=== PATIENT | male | born 1940 | race Caucasian/White ===

== ENCOUNTER 2020-02-10 02:23 | Emergency (ER) | payer OTHER, MEDICARE ==
[~2020-02-10] VITALS: Ht 182.9 cm; Wt 95.3 kg
[2020-02-10 02:23] VITALS: BP_SYST 162
[~2020-02-10 02:23] MED LIST: ATEN100T PO; LEVO137T20 PO; LOSA100T23 PO; PRAV40TA PO; TRIA1CAP6 PO
[2020-02-10] MEDS ORDERED: TRANEXAMIC ACID 1,000 MG/10 ML VIAL IV ONE ×2 (02:45→03:30)
[2020-02-10] MEDS ORDERED: TRANEXAMIC ACID 1,000 MG/10 ML VIAL ONE (02:46)
[2020-02-10] MEDS ORDERED: OXYMETAZOLINE HCL 0.05% NASAL SPRAY NS ONE ×3 (03:13→05:15)
[2020-02-10 03:17] LABS: BASOPHILS % (AUTO) 0.8 % (0.0-2.0); EOSINOPHILS # (AUTO) 0.1 K/uL (0.0-0.4); EOSINOPHILS % (AUTO) 2.2 % (0.0-4.0); HEMATOCRIT 45.2 % (36-54); HEMOGLOBIN 15.3 g/dL (14.0-18.0); LYMPHOCYTES # (AUTO) 1.1 K/uL (1.0-5.5); LYMPHOCYTES % (AUTO) 20.4 % (20.5-51.5); MEAN CORPUSCULAR HEMOGLOBIN 31 pg (27-31); MEAN CORPUSCULAR HGB CONC 34 % (32-36); MEAN CORPUSCULAR VOLUME 92 fL (79.0-98.0); MONOCYTES # (AUTO) 0.6 K/uL (0.0-1.0); MONOCYTES % (AUTO) 10.4 % (1.7-9.3); NEUTROPHILS # (AUTO) 3.5 K/uL (1.8-7.7); NEUTROPHILS % (AUTO) 66.2 % (40.0-70.0); PLATELET COUNT (AUTO) 152 K/uL (130-430); RED BLOOD CELL COUNT(AUTO) 4.89 MIL/uL (4.2-6.2); RED CELL DISTRIBUTION WIDTH 14.8 % (9.0-15.0); WHITE BLOOD COUNT (AUTO) 5.3 K/uL (4.8-10.8)
[2020-02-10 03:29] LABS: ANION GAP 6 (5-15); CALCIUM 8.5 mg/dL (8.4-11.0); CHLORIDE 107 mmol/L (98-107); CREATININE 1.44 mg/dL (0.55-1.30); GLUCOSE 157 mg/dL (70-99); POTASSIUM 4.7 mmol/L (3.5-5.1); SODIUM SERUM 136 mmol/L (136-145); UREA NITROGEN, BLOOD 23 mg/dL (8-21)
[2020-02-10 03:31] LABS: INR 1.1 (0.80-1.20); PROTHROMBIN TIME 10.7 SECS (9.5-12.5)
[2020-02-10 03:33] LABS: ALANINE AMINOTRANSFERASE 21 U/L (12-78); ALBUMIN 3.5 g/dL (3.4-4.8); ASPARTATE AMINOTRANSFERASE 16 U/L (10-37); TOTAL BILIRUBIN 0.7 mg/dL (0.0-1.0)
[2020-02-10] MEDS ORDERED: SILVER NITRATE APPLICATOR 1 STICK STICK..EA. TP ONE ×2 (05:15→05:30)
[2020-02-10 06:31] VITALS: BP_SYST 162
== END 2020-02-10 06:30 | disposition home or self-care (01) ==
LOC: SED 02:23
DX: R04.0 Epistaxis (principal); E78.00 Pure hypercholesterolemia, unspecified; I10 Essential (primary) hypertension; E07.9 Disorder of thyroid, unspecified; I48.91 Unspecified atrial fibrillation; Z95.0 Presence of cardiac pacemaker; Z86.73 Personal history of transient ischemic attack (TIA), and cerebral infarction without residual deficits; Z79.899 Other long term (current) drug therapy
CPT/HCPCS: 30901; 36415; 80053; 85025; 85610; 85730; 96374; 99284; J3490

== ENCOUNTER 2022-03-26 16:02 | Emergency (ER) | payer OTHER, MEDICARE ==
[~2022-03-26] VITALS: Ht 182.9 cm; Wt 99.8 kg
[2022-03-26 16:17] VITALS: BP_SYST 156
--- NOTE | 2022-03-26 17:03 | NUR ---
BIBS WITH C/C OF PEELING A POTATO AT HOME AND KNICKED THE 5TH DIGIT OF LEFT HAND WITH FRANKY. PT ON ASA EVERY OTHER DAY. PRESENTS WITH SMALL LACERATION TO TIP OF LEFT HAND PINKY, PRESSURE DRESSING APPLIED. BLEEDING CONTROLLED. PENDING DR. HESS TO EVALUATE. NAD NOTED. DENIES PAIN.
--- NOTE | 2022-03-26 17:05 | NUR ---
PLACED IN WAITING ROOM.
[2022-03-26] MEDS ORDERED: DIPHTH,PERTUSS(ACELL),TET VAC 0.5 ML VIAL (Tdap) I.M. ONE (18:15)
[2022-03-26 19:06] VITALS: BP_SYST 145
--- NOTE | 2022-03-26 19:08 | NUR ---
PT CLEARED FOR DC BY DR. HESS. PT VERBALIZED UNDERSTANDING OF DC INSTRUCTIONS. VSS, AFEBRILE. NAD NOTED. DRESSING C/D/I WITH BLEEDING CONTROLLED. PT AMBULATED OUT OF ED IN STABLE CONDITION.
== END 2022-03-26 19:06 | disposition home or self-care (01) ==
LOC: SED 16:02
DX: S61.217A Laceration without foreign body of left little finger without damage to nail, initial encounter (principal); I11.0 Hypertensive heart disease with heart failure; I50.9 Heart failure, unspecified; Z79.899 Other long term (current) drug therapy; W27.4XXA Contact with kitchen utensil, initial encounter; Y93.G3 Activity, cooking and baking; Y92.89 Other specified places as the place of occurrence of the external cause; Y99.8 Other external cause status
CPT/HCPCS: 90715; 99283